=== PATIENT | female | born 2000 | race African-American/Black ===

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

== ENCOUNTER 2020-06-26 22:54 | Inpatient (IN) | payer OTHER ==
[~2020-06-26] VITALS: Ht 162.6 cm; Wt 92.5 kg
[2020-06-26] MEDS ORDERED: PROZ20CA11 PO (23:35)
[2020-06-27 00:24] LABS: BASO % 0.3 % (0.0-1.0); EOS # 0.1 10^3/uL (0.0-0.5); EOS % 1.4 % (0.0-3.0); HEMATOCRIT 44.2 % (36.0-47.0); HEMOGLOBIN 14.6 g/dl (12.0-15.5); LYMPH # 1.8 10^3/uL (1.5-5.0); LYMPH % 28.4 % (24.0-44.0); MEAN CORPUSCULAR HEMOGLOBIN 28.6 pg (27.0-33.0); MEAN CORPUSCULAR VOLUME 86.7 fl (80.0-96.0); MONO # 0.4 10^3/uL (0.0-0.8); MONO % 5.6 % (2.0-8.0); NEUTROPHILS # 4.1 10^3/uL (1.5-8.5); NEUTROPHILS % 63.8 % (36.0-66.0); PLATELET COUNT, AUTOMATED 269 10^3/uL (150-450); WHITE BLOOD COUNT 6.4 10^3/uL (4.0-10.0)
[2020-06-27 00:28] LABS: AMPHETAMINES LEVEL URINE NEGATIVE (NEGATIVE); BARBITURATES URINE NEGATIVE (NEGATIVE); BENZODIAZEPINES URINE NEGATIVE (NEGATIVE); CANNABINOIDS URINE POSITIVE (NEGATIVE); COCAINE METABOLITE URINE NEGATIVE (NEGATIVE); METHADONE URINE NEGATIVE (NEGATIVE); OPIATES URINE NEGATIVE (NEGATIVE); PHENCYCLIDINE URINE NEGATIVE (NEGATIVE)
[2020-06-27 00:39] LABS: HCG, SERUM QUALITATIVE NEGATIVE (NEGATIVE)
[2020-06-27 00:48] LABS: ACETAMINOPHEN LEVEL < 2.0 UG/ML (10.0-30.0); ALT/SGPT 24 U/L (12-78); BILIRUBIN,DIRECT < 0.1 MG/DL (0.0-0.2); BILIRUBIN,TOTAL 0.2 MG/DL (0.2-1.0); BLOOD UREA NITROGEN 10 MG/DL (7-18); CALCIUM LEVEL 8.5 MG/DL (8.5-10.1); CARBON DIOXIDE LEVEL 22 MEQ/L (21-32); CHLORIDE LEVEL 112 MEQ/L (98-107); CPK CREATINE PHOSPHOKINASE 191 U/L (26-192); CREATININE FOR GFR 0.43 MG/DL (0.55-1.30); ETHYL ALCOHOL (ETHANOL) 0.189 % (0.000-0.010); GLUCOSE, FASTING 82 MG/DL (70-100); POTASSIUM SERUM 3.5 MEQ/L (3.5-5.1); SALICYLATE LEVEL < 1.7 MG/DL (5.0-30.0); SODIUM LEVEL 143 MEQ/L (136-145); TOTAL PROTEIN 7.5 GM/DL (6.4-8.2)
[2020-06-27] MEDS ORDERED: ONDANSETRON 4MG/2ML VIAL IV ONE (02:55)
[2020-06-27] MEDS ORDERED: NS 1,000 ML IV ONE (03:00)
[2020-06-27 05:47] LABS: RSV AMPLIFICATION NEGATIVE (NEGATIVE)
--- NOTE | 2020-06-27 09:30 | ECGEPIP ---
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
[2020-06-27] MEDS ORDERED: PARO20TA3 PO (09:54)
[2020-06-27] MEDS ORDERED: ACETAMINOPHEN TAB 650MG DOSE (2X325MG) PO PRN (11:15)
[2020-06-27] MEDS ORDERED: traZODone 50 MG TAB PO PRN (11:15)
[2020-06-27] MEDS ORDERED: MAALOX 30 ML SUSP *UDC PO PRN (11:15)
[2020-06-27] MEDS ORDERED: MOM 30ML SUSPENSION UDC PO PRN (11:15)
[2020-06-27 12:06] VITALS: BP 134/74
[2020-06-28 06:00] VITALS: BP 136/73
--- NOTE | 2020-06-28 09:08 | MHHPEPDOC ---
General Date Of Admission: Jun 27, 2020 Legal Status: 9.39 Chief Complaint I was trying to get attention". History of Present Illness HISTORY OF THE PRESENT ILLNESS: Patient is a 19 -year-old , female, who was drinking alcohol along with her ex- boyfriend ,got int arguments and tried swallow 13 pills of zoloft 25 mg each. Her boy friend helped her to spit some of it out.She told her mother about,who brought her to hospital . Pt gong through some stress work related and financial.A month ago she was treated for depression with Prozac 20 mg/day which has partially helped her. She also has H/O Panic D/O without agarophobia.No H/O psychosis or yoselin.. Psychiatric Review of Systems Depression (2 or more weeks): depressed mood, anhedonia, decreased energy Yoselin (4 or more days of): denies Psychosis: denies PTSD: denies Anxiety: panic attacks Past Psychiatric History Previous Psychiatric Diagnosis: Depressive episode. Previous Psychiatric Admissions:denies . Suicide Attempts: denies. Psychiatric Follow-up: none. Psychiatric medications: Prozac. Past Medical History Medical Problems none Head Injury: No Seizures: No Hospitalizations: No Surgeries: No Family Medical/Psychiatric HX Psychiatric Disorders: No Addiction: No Suicide Attemps/Completions: No Addiction History alcohol (Once aweek , drinks a lot), other (Cannabis everyday) Social History Childhood: . Abuse/Trauma: denies. Current Living Situation: living with mother. Education: Highschool graduation. Employment:works in [employer] shop for two years . Social Support:mother . Legal:none. Marital:none . Mental Status Examination General Appearance: well groomed, appears stated age Build: overweight Demeanor: average Eye Contact: average Activity: average Behavior: cooperative Speech: clear, spontaneous Mood: depressed, anxious Thought Process: logical/linear Thought Content (Delusions): none reported Thought Content (Other): none reported Thought Content (Aggressive): none reported Perception (Hallucinations): none reported Perception (Other): none reported Cognition (Impairment of): none reported Cognition(Intelligence Est.): average Oriented: Awake, Alert, Oriented times three Insight: fair Judgment: Poor Psychosis: Denies Diagnoses Major depressive disorder Alcohol use disorder cannabis use disorder A-FIB/CHADSVASC A-FIB History Current/History of A-Fib/PAF?: No Current PO Anticoag Therapy: No Assessment Pt currently depressed ,Prozac helping her partially will increase the dose to 30 mg/ daily. Pt currently not having S/I Initial Treatment Plan 1. Patient was admitted on a [9.39] status. 2. Complete history was obtained. 3. With patients permission, family will be contacted and database will be expanded. 4. Patients medication regimen will be reviewed and changed accordingly. 5. Patient will be provided with protected environment. 6. Patient will be treated with individual, group, and milieu therapies. 7. Patient will receive supportive psych-education. 8. Discharge planning will commence immediately. 9. Outpatient follow-up treatment will be strongly recommended. 10. The initial treatment plan will focus initially on: * Depression. * Risk for suicide. ESTIMATED LENGTH OF STAY: [4]-[5] DAYS. TIME SPENT COUNSELING AND COORDINATING INITIAL CARE: [60] minutes. Complete/Results docum. Vital Signs Vital Signs Date Time Temp Pulse Resp B/P (MAP) Pulse Ox O2 Delivery O2 Flow Rate FiO2 06/28/20 07:49 Room Air 06/28/20 06:00 98.1 70 20 136/73 (94) 99 Medications Scheduled Paroxetine HCl (Paroxetine HCl) 20 Mg Tablet, 20 MG PO DAILY, (Reported) Allergies Coded Allergies: No Known Allergies (Unverified , 08/03/17) CISCO MEDEL MD Jun 28, 2020 09:08
[2020-06-29 06:42] VITALS: BP 117/71
--- NOTE | 2020-06-29 13:46 | MHIPNPDOC ---
[facility] Progress Note Progress Note DATE OF SERVICE: 06/29/20 HISTORY: HISTORY OF THE PRESENT ILLNESS: Patient is a 19 -year-old Single, Employed, Domiciled, , female, who was drinking alcohol along with her ex- boyfriend ,got into arguments and tried swallow 13 pills of Zoloft 25 mg. Her boy friend helped her to spit some of it out. She told her mother about,who brought her to hospital . Pt gong through some stress work related and financial.A month ago she was treated for depression with Prozac 20 mg/day which has partially helped her. She also has H/O Panic D/O without agarophobia.No H/O psychosis or scott. PER ED REPORT: Pt presented to ED with her mother, after ingesting a bottle of rum (.189 at 11:42 PM), and "about" 13 sertraline 25MG pills belonging to her GF Edith, as an OD attempt, per pt. Pt's mother Tamanna states pt. has been under a lot of stress due to her job, and boss being racist, "coming out" and dating Edith, after a 2-3 year relationship with a male person Diego, "whom she misses" and very confused about her life's future. Pt minimizing her OD attempt to kill self, saying "I did it to scare Colt," has been feeling hopeless and helpless about her life, not sleeping past month, eats less after taking the Prozac given to her by her GP Dolores at [facility] clinic a month ago, "has only been taking them compliantly for the past 1 week." Pt reports no HI, no Ah, VH, drinks ETOH weekly, "no stop button, until she throws up," smokes cannabis daily, for severe anxiety. Pt stated she was SI last night, has never attempted suicide in the past, mom states the same, pt.s GP wants pt. to make an appointment with [facility] due to severe Depression symptoms, pt. did not comply with GP request. Mother states she is afraid of what can happen because of pt.s anger issues, "goes into a rage for no apparent reason. "Pt was very pleasant, minimal responses, fearful of saying the wrong thing and hoping to go home. Mother has safety concerns at this time. VITAL SIGNS: See below. CURRENT MEDICATIONS: See below. MENTAL STATUS EXAMINATION: Patient is a 19 -year-old Single, Employed, Domiciled, , female, who was drinking alcohol had a suicide gesture of attempting to ingest 13 Zoloft 25 mg tablets Speech: Is fluid, normal rate, tone and volume Language skills are intact Thought processes including: linear and goal oriented Thought content: reports minimal depression and anxiety. States she feels remorseful about suicide gesture. Denies suicidal/homicidal ideation, planning or intent. Abstract reasoning, and computation: fair Description of associations: denies, none observed Description of abnormal or psychotic thoughts: denies, none observed. Judgment: fair Insight: fair Orientation: alert and oriented to person, place, time and situation Recent and remote memory: intact Attention span and concentration: good Language: expansive Fund of knowledge: average Mood: Euthymic Mood Affect: flat DIAGNOSES: Major depressive disorder Alcohol use disorder cannabis use disorder ASSESSMENT: Patient was found in her room and agreeable to interview. She reported today that she was hopeful that she would be discharged today. She had not started medications and was agreeable to restarting Prozac. She denies severe depression and anxiety. Denies continued thoughts of suicide. 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 She states that she wants to stop drinking, said that she didn't really remember the circumstances of the suicide gesture/attempt because she was intoxicated but reports that she feels "stupid." She is hoping that this admission will not hinder her ability to get into a nursing school. Reinforced with patient that she can be very accomplished if she can balance anxiety and stress. Patient was cooperative and engaged in the interview. Pending any issues, she probably will be discharged tomorrow. MANAGEMENT PLAN: Continue medications. Patient to start Prozac 30 mg today. Patient is requesting discharge tomorrow TIME SPENT: 25 minutes. Vital Signs Vital Signs Date Time Temp Pulse Resp B/P (MAP) Pulse Ox O2 Delivery O2 Flow Rate FiO2 06/29/20 06:42 98.4 61 16 117/71 (86) 99 Room Air Current Medications Current Medications Medications (Trade) Dose Ordered Sig/Mima Route PRN Reason Start Time Stop Time Status Last Admin Dose Admin Acetaminophen (Tylenol Tab) 650 mg Q6HP PRN PO HEADACHE or DISCOMFORT 06/27/20 11:15 Al Hydrox/Mg Hydrox/Simethicone (Mylanta) 30 ml Q4HP PRN PO HEARTBURN/INDIGESTION 06/27/20 11:15 Home Med (Med Rec Complete!) ASDIRECTED XX 06/27/20 09:55 06/27/20 09:59 DC Magnesium Hydroxide (Milk Of Magnesia) 30 ml DAILYPRN PRN PO CONSTIPATION 06/27/20 11:15 Trazodone HCl (Desyrel) 50 mg QHSP PRN PO INSOMNIA 06/27/20 11:15 Allergies Coded Allergies: No Known Allergies (Unverified , 08/03/17) JARON TEMPLETON BONDING MACHINE TENDER Jun 29, 2020 13:19
[2020-06-29] MEDS: FLUoxetine 10 MG CAP PO SCH (15:22)
[2020-06-29 16:00] VITALS: BP 138/79
--- NOTE | 2020-06-29 16:46 | HPEPDOC ---
[facility] Medical History & Physical Date of Admission Jun 29, 2020 Date of Service: Jun 29, 2020 History and Physical Chief complaint: Patient presented to [facility] for suicidal attempt History of present illness: Patient is a 19-year-old female who presented to [facility] after checking suicide by consuming several of her sertraline pills and alcohol. Patient was admitted to the inpatient mental health unit under the care of psychiatry. Hospitalist service was consulted for medical screening evaluation. Currently patient denies any chest pain, shortness of breath, palpitations, nausea, vomiting, abdominal pain, diarrhea, or urinary discomfort. She denies any headache. Has not experience any changes in her weight or her appetite. Denies any recent fevers or chills. Past Medical History: Asthma, mostly exercise-induced Past Surgical History: No prior surgeries Allergies: See below Medications: See below Family History: - Mother with a history of bone cancer Social History: - Denies the use of tobacco; social alcohol use; reports the daily use of marijuana - Denies recent travel or sick contacts - Lives alone - Occupation; patient reports that she works at [employer] Review of Systems: 10 point review of systems complete, all negative otherwise stated in HPI Physical exam: - Vitals: BP [117/71], HR [61], RR [16], Sat [99%RA], Temp [98.4F] - General: Sitting up in chair, No acute distress, Speaking in full sentences, AAOx3 - HEENT: NC, AT, PERRLA - CVS: RRR, +S1S2, - Murmurs / rubs / gallops - Lungs: Fair air entry bilaterally, No appreciable wheezing / rales / rhonchi - Abdomen: Soft, Non-distended, Non-tender - Extremities: No lower extremity edema, No calf tenderness - Neuro: No focal motor or sensory deficit - Skin: No visible rashes Labs: See below Imaging: See below EKG: See below Assessment and Plan: Suicidal attempt - Presented to emergency room after attempting suicide - Patient is cleared by the ER and admitted to the inpatient mental health unit - Currently being managed by psychiatry Asthma - Appears to be mostly exercise-induced - Will provide albuterol inhaler when necessary DVT prophylaxis - Will c/w early ambulation Female log check scaler was present at the duration of this history and physical examination Thank you for this consultation. Hospitalist service will sign off. Please reconsult as needed Vital Signs Vital Signs Date Time Temp Pulse Resp B/P (MAP) Pulse Ox O2 Delivery O2 Flow Rate FiO2 06/29/20 06:42 98.4 61 16 117/71 (86) 99 Room Air Home Medications Scheduled Paroxetine HCl (Paroxetine HCl) 20 Mg Tablet, 20 MG PO DAILY Allergies Coded Allergies: No Known Allergies (Unverified , 08/03/17) LYDIA BARBA MD Jun 29, 2020 16:46
[2020-06-29] MEDS ORDERED: ALBUTEROL 90 MCG/ACT 8GM HFA INHALER INH PRN (17:00)
[2020-06-30 06:38] VITALS: BP 130/60
[2020-06-30] MEDS: FLUoxetine 10 MG CAP PO SCH (08:05)
[2020-06-30] MEDS ORDERED: FLUO10CA16 PO (10:42)
== END 2020-06-30 11:45 | disposition home or self-care (01) | DRG 754 ==
LOC: M ED 22:54 → M ED INP 06-27 11:15 → M PSY 06-27 12:27
PROVIDERS: ADMIT Psychiatry & Neurology Psychiatry; ATTEND Psychiatry & Neurology Psychiatry
DX: F32.9 Major depressive disorder, single episode, unspecified (principal); R45.851 Suicidal ideations; F10.10 Alcohol abuse, uncomplicated; F12.90 Cannabis use, unspecified, uncomplicated; J45.909 Unspecified asthma, uncomplicated

== ENCOUNTER → 2020-07-08 | Outpatient (CLI) | payer OTHER ==
[~2020-07-08] MED LIST changes: +FLUO10CA16 PO; +PARO20TA3 PO; +PROZ20CA11 PO
[2020-07-08 16:49] LABS: BASO % 0.5 % (0.0-1.0); EOS # 0.1 10^3/uL (0.0-0.5); EOS % 2.2 % (0.0-3.0); HEMATOCRIT 42.6 % (36.0-47.0); HEMOGLOBIN 13.7 g/dl (12.0-15.5); LYMPH # 1.6 10^3/uL (1.5-5.0); LYMPH % 25.2 % (24.0-44.0); MEAN CORPUSCULAR HEMOGLOBIN 28.4 pg (27.0-33.0); MEAN CORPUSCULAR HGB CONC 32.2 g/dl (32.0-36.5); MEAN CORPUSCULAR VOLUME 88.4 fl (80.0-96.0); MONO # 0.6 10^3/uL (0.0-0.8); MONO % 9.3 % (2.0-8.0); NEUTROPHILS % 62.2 % (36.0-66.0); PLATELET COUNT, AUTOMATED 253 10^3/uL (150-450); RED BLOOD COUNT 4.82 10^6/uL (4.00-5.40); WHITE BLOOD COUNT 6.5 10^3/uL (4.0-10.0)
[2020-07-08 17:16] LABS: PERCENT SATURATION 10.6 % (13.2-45.0)
== END ==
LOC: M WUC 12:18
PROVIDERS: ATTEND Nurse Practitioner Adult Health
DX: D69.9 Hemorrhagic condition, unspecified (principal)

== ENCOUNTER → 2022-07-04 | Outpatient (REF) ==
[~2022-07-04] MED LIST changes: -FLUO10CA16 PO; +FLUO10CA18 PO
== END ==
LOC: M EMP 08:26
PROVIDERS: ATTEND Family Medicine
DX: Z11.52 Encounter for screening for COVID-19 (principal)

== ENCOUNTER → 2022-07-11 | Outpatient (REF) | LOC: M EMP 09:12 | PROVIDERS: ATTEND Family Medicine | DX: Z11.52 Encounter for screening for COVID-19 (principal) ==

== ENCOUNTER → 2022-07-19 | Outpatient (REF) | LOC: M EMP 08:41 | PROVIDERS: ATTEND Family Medicine | DX: Z11.52 Encounter for screening for COVID-19 (principal) ==

== ENCOUNTER → 2022-07-25 | Outpatient (REF) | LOC: M EMP 09:30 | PROVIDERS: ATTEND Family Medicine | DX: Z11.52 Encounter for screening for COVID-19 (principal) ==

== ENCOUNTER → 2022-08-01 | Outpatient (REF) | LOC: M EMP 14:10 | PROVIDERS: ATTEND Family Medicine | DX: Z11.52 Encounter for screening for COVID-19 (principal) ==

== ENCOUNTER → 2022-08-08 | Outpatient (REF) | LOC: M EMP 14:56 | PROVIDERS: ATTEND Family Medicine | DX: Z11.52 Encounter for screening for COVID-19 (principal) ==

== ENCOUNTER → 2022-08-08 | Outpatient (REF) | LOC: M EMP 09:28 | PROVIDERS: ATTEND Family Medicine | DX: Z53.9 Procedure and treatment not carried out, unspecified reason (principal) ==

== ENCOUNTER → 2022-08-16 | Outpatient (REF) | LOC: M EMP 10:18 | PROVIDERS: ATTEND Family Medicine | DX: Z20.822 Contact with and (suspected) exposure to COVID-19 (principal) ==

== ENCOUNTER → 2022-08-23 | Outpatient (REF) | LOC: M EMP 10:17 | PROVIDERS: ATTEND Family Medicine | DX: Z11.52 Encounter for screening for COVID-19 (principal) ==

== ENCOUNTER → 2023-04-11 | Outpatient (REF) ==
[~2023-04-11] MED LIST changes: +ONDA4TAB6 PO; +ONDA8TAB8
== END ==
LOC: M EMP 07:34
PROVIDERS: ATTEND Family Medicine
DX: Z53.9 Procedure and treatment not carried out, unspecified reason (principal)

== ENCOUNTER → 2023-06-02 | Outpatient (REF) | LOC: M EMP 03-24 10:00 | PROVIDERS: ATTEND Family Medicine | DX: Z11.52 Encounter for screening for COVID-19 (principal); Z53.9 Procedure and treatment not carried out, unspecified reason ==

== ENCOUNTER → 2023-06-02 | Outpatient (REF) | LOC: M EMP 11:38 | PROVIDERS: ATTEND Family Medicine | DX: Z11.52 Encounter for screening for COVID-19 (principal) ==

== ENCOUNTER → 2023-07-26 | Outpatient (REF) | payer OTHER ==
[~2023-07-26] MED LIST changes: +FLUO-290 PO; -FLUO10CA18 PO
[2023-07-26 18:03] LABS: Trichomonas vaginalis (AMP) NOT DETECTED (NEGATIVE)
[2023-07-26 18:26] LABS: GC DNA AMPLIFICATION NEGATIVE (NEGATIVE)
[2023-07-26 19:20] LABS: HEMOGLOBIN A1c 4.5 % (4.0-6.0)
[2023-07-26 19:21] LABS: ALBUMIN 3.8 G/DL (3.2-5.2); ALKALINE PHOSPHATASE 51 U/L (46-116); ALT/SGPT 19 U/L (7.0-40); AST/SGOT 18 U/L (<34); BILIRUBIN,TOTAL 0.3 MG/DL (0.3-1.2); BLOOD UREA NITROGEN 21 MG/DL (9-23); CALCIUM LEVEL 9.2 MG/DL (8.5-10.1); CARBON DIOXIDE LEVEL 24 MMOL/L (20-31); CHLORIDE LEVEL 107 MMOL/L (98-107); CHOLESTEROL LEVEL 190 MG/DL (<200); CHOLESTEROL RISK RATIO 2.16 (<5); CREATININE FOR GFR 0.59 MG/DL (0.55-1.30); GLOMERULAR FILTRATION RATE > 60.0 (>60); GLUCOSE, FASTING 57 MG/DL (60-100); HDL CHOLESTEROL 87.9 MG/DL (>40); LDL CHOLESTEROL 84.1 MG/DL (<100); NON-HDL-C 102.1 MG/DL; POTASSIUM SERUM 4.1 MMOL/L (3.5-5.1); SODIUM LEVEL 137 MMOL/L (136-145); TOTAL PROTEIN 7.3 G/DL (5.7-8.2); TRIGLYCERIDES LEVEL 90 MG/DL (<150)
[2023-07-26 19:22] LABS: TOTAL 25(OH) VITAMIN D 7.2 NG/ML (20.0-100.0)
[2023-07-26 19:23] LABS: THYROID STIMULATING HORMONE 3.081 uIU/ML (0.55-4.78)
== END ==
LOC: M LAB REF 16:18
PROVIDERS: ATTEND Physician Assistant
DX: Z11.9 Encounter for screening for infectious and parasitic diseases, unspecified (principal); E66.9 Obesity, unspecified; E55.9 Vitamin D deficiency, unspecified

== ENCOUNTER → 2024-05-14 | Outpatient (REF) | payer OTHER ==
[~2024-05-14] MED LIST changes: +ONDA-282 PO; +ONDA-284; -ONDA4TAB6 PO; -ONDA8TAB8
== END ==
LOC: M LAB REF 21:11
PROVIDERS: ATTEND Physician Assistant
DX: B34.9 Viral infection, unspecified (principal)

== ENCOUNTER 2024-07-07 22:57 | Emergency (ER) | payer OTHER ==
[~2024-07-07] VITALS: Ht 165.1 cm; Wt 116.0 kg
[2024-07-08] MEDS: IBUPROFEN 600MG TAB PO ONE (03:27)
[2024-07-08 03:34] VITALS: BP 130/65; TEMP 98.7; O2SAT 98
== END 2024-07-08 03:42 | disposition home or self-care (01) ==
LOC: M ED 22:57
DX: S80.01XA Contusion of right knee, initial encounter (principal); M25.461 Effusion, right knee; X50.0XXA Overexertion from strenuous movement or load, initial encounter; Y92.009 Unspecified place in unspecified non-institutional (private) residence as the place of occurrence of the external cause; Y93.89 Activity, other specified; Y99.8 Other external cause status